=== PATIENT | male | born 2005 | race Two or more races ===

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

== ENCOUNTER 2024-07-28 12:59 | Emergency (ER) | payer MEDICAID ==
[~2024-07-28] VITALS: Ht 175.3 cm; Wt 96.8 kg
[~2024-07-28 12:59] MED LIST: OMEP-434 PO
--- NOTE | 2024-07-28 13:36 | ED.PDOC ---
Musculoskeletal HPI Comments A 18 YEAR OLD MALE PRESENTS TO THE ED WITH COMPLAINT OF LEFT ANKLE PAIN. PATIENT STATES HE WAS PLAYING BASKETBALL YESTERDAY AND HE ACCIDENTALLY TWISTED HIS LEFT ANKLE. PATIENT REPORTS HE IS NOW EXPERIENCING LEFT ANKLE PAIN WITH MILD SWELLING. PATIENT DENIES FEVER, CHILLS, SHORTNESS OF BREATH, CHEST PAIN, ABDOMINAL PAIN, NAUSEA, VOMITING, HEADACHE, OR OTHER COMPLAINTS. NO OTHER SYMPTOMS OR MODIFYING FACTORS AT THIS TIME. PATIENT IS ALERT, ORIENTED X 4, AND HAS STEADY GAIT. Chief Complaint: Lower Extremity Time Seen by MD: 13:01 Primary Care Provider: LEANNE Reviewed Notes: Nurses Notes, Medications, Allergies Allergies: Coded Allergies: No Known Drug Allergy (Verified Allergy, Unknown, 05/22/18) Home Meds Active Scripts Omeprazole Magnesium (Omeprazole) 20 Mg Tab, 20 MG PO DAILY for 20 Days, #20 TAB Prov:MIGUELINA CASTILLO 07/01/22 Information Source: Patient Mode of Arrival: Ambulatory Location: Left Extremity Location: Ankle Timing: Days Prehospital treatment: None Severity: Moderate Able to Move Extremity: Yes Bear Weight: Fully Pain: Moderate Mechanism: Twisting Circumstances: Sporting, Playing Onset of Symptoms: After Trauma Symptoms: Swelling, Pain DVT Risk Factors: NONE Last Tetanus: UTD Associated signs and symptoms: Ankle pain Past Medical History PAST MEDICAL HISTORY: Denies Surgical History: Denies all surgeries Family History Family History: Reviewed,noncontributory to illness Social History Smoker: Non-Smoker Alcohol: Occasionally Drugs: Cocaine, Marijuana Lives In: Home Constitutional: denies: chills, diaphoresis, fatigue, fever, malaise, sweats, weakness, others EENTM: denies: blurred vision, double vision, ear bleeding, ear discharge, ear drainage, ear pain, ear ringing, eye pain, eye redness, hearing loss, mouth pain, mouth swelling, nasal discharge, nose bleeding, nose congestion, nose pain, photophobia, tearing, throat pain, throat swelling, voice changes, others Respiratory: denies: cough, hemoptysis, orthopnea, SOB at rest, shortness of breath, SOB with excertion, stridor, wheezing, others Cardiovascular: denies: chest pain, dizzy spells, diaphoresis, Dyspnea on exertion, edema, irregular heart beat, left arm pain, lightheadedness, palpitations, PND, syncope, others Gastrointestinal: denies: abdomen distended, abdominal pain, blood streaked bowels, constipated, diarrhea, dysphagia, difficulty swallowing, hematemesis, melena, nausea, poor appetite, poor fluid intake, rectal bleeding, rectal pain, vomiting, others Genitourinary: denies: burning, dysuria, flank pain, frequency, hematuria, incontinence, penile discharge, penile sore, pain, testicle pain, testicle swelling, urgency, others Neurological: denies: dizziness, fainting, headache, left sided numbness, left sided weakness, numbness, paresthesia, pre-existing deficit, right sided num bness, right sided weakness, seizure, speech problems, tingling, tremors, weakness, others Musculoskeletal: reports: joint pain, joint swelling, others (LEFT ANKLE PAIN WITH MILD SWELLING); denies: back pain, gout, muscle pain, muscle stiffness, neck pain Integumetry: denies: bruises, change in color, change in hair/nails, dryness, laceration, lesions, lumps, rash, wounds, others Allergic/Immunocompromised: denies: Difficulty Healing, Frequent Infections, Hives, Itching, others Hematologic/Lymphatic: denies: anemia, blood clots, easy bleeding, easy bruising, swollen glands, others Endocrine: denies: excessive hunger, excessive sweating, excessive thirst, excessive urination, flushing, intolerance to cold, intolerance to heat, unexplained weight gain, unexplained weight loss, others Psychiatric: denies: anxiety, bipolar disorder, depression, hopeless, panic disorder, schizophrenia, sleepless, suicidal, others All Other Systems: Reviewed and Negative Physical Exam General Appearance: No Apparent Distress, Normal HEENT: Normal ENT Inspection, PERRL/EOMI, Pharynx Normal, TMs Normal Neck: Full Range of Motion, Non-Tender, Normal, Normal Inspection Respiratory: Chest Non-Tender, Lungs Clear, No Accessory Muscle Use, No Respiratory Distress, Normal Breath Sounds Cardiovascular: No Edema, No JVD, No Murmur, No Gallop, Normal Peripheral Pulses, Regular Rate/Rhythm Breast Exam: Deferred Gastrointestinal: No Organomegaly, Non Tender, No Pulsatile Mass, Normal Bowel Sounds, Soft Genitalia: Deferred Pelvic: Deferred Rectal: Deferred Extremities: No calf tenderness, Normal capillary refill, Normal range of motion, No pedal edema, Tender (AND MILD SWELLING ON LEFT ANKLE, NO BONY TENDERNESS AND DEFORMITY. 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 Was a procedure done?: No Differential Diagnosis EXT Differential Diagnosis: Fracture, Sprain, Dislocation, Contusion, Strain X-Ray, Labs, Meds, VS Vital Signs Date Time Temp Pulse Resp B/P (MAP) Pulse Ox O2 Delivery O2 Flow Rate FiO2 07/28/24 13:59 81 16 99 Room Air 07/28/24 13:59 81 16 118/68 (85) 99 07/28/24 13:06 98.7 81 16 118/68 (85) 99 PATIENT: ISABELLA MASON: [id number]: [id number] : 2005 LOC: ER ROOM / BED: / AGE / SEX: 18 / M ADM STATUS: REG ER SERVICE 1307 ORDERING PHYSICIAN: MODESTA VAZQUEZ PROCEDURE(s): LANKL - L ANKLE 3 VIEW REASON: INJURY ORDER NUMBER(s): [id number], ACCESSION NUMBER(s): [id number] CLINICAL INFORMATION: 18 years old, Male; INJURY . TECHNIQUE: 3 views of the left ankle were obtained. COMPARISON: None FINDINGS: No acute fracture or dislocation. Talar dome is smooth. No widening at the ankle mortise. No significant arthropathy. Hvgo-zs-diansfid soft tissue swelling along the lateral aspect of the ankle. IMPRESSION: 1. No evidence of acute fracture. 2. Soft tissue swelling along the lateral aspect of the ankle. ATED BY: ALIRIO HAYES DO DICTATED DATE/TIME: 07/28/241347 SIGNED BY: ALIRIO HAYES DO SIGNED DATE/TIME: 07/28/241347 CC: X-Ray, Labs, Meds, VS Comment EXTERNAL NOTES: NONE LABS ORDERED: NONE REVIEWED AND INTERPRETED RESULTS: NONE IMAGING ORDERED: XR ANKLE LT: INDEPENDENT HISTORIANS: NONE TREATMENT: PATIENT'S CASE AND RESULTS HAVE BEEN DISCUSSED WITH THE ED ATTENDING PHYSICIAN AND THEY AGREE WITH MY PLAN OF CARE. I HAVE DISCUSSED IMAGING RESULTS WITH PATIENT AND HAVE INSTRUCTED HIM TO FOLLOW UP WITH THEIR PCP IN 1-2 DAYS. THE PATIENT FULLY UNDERSTANDS THEIR RESULTS AND ARE AWARE THEY NEED TO FOLLOW UP WITH THEIR PCP FOR FURTHER EVALUATION IF THEIR SYMPTOMS PERSIST. Images Reviewed?: Images reviewed and evaluated by me Time of 1ST Reevaluation: 14:15 Reevaluation 1ST: Improved Patient Education/Counseling: Diagnosis, Treatment, Need For Follow Up Family Education/Counseling: Diagnosis, Treatment, Need For Follow Up Medical Screening: No EMC Exist At This Time Departure 1 Departure Time of Disposition: 14:15 Impression: Primary Impression: Sprain of left ankle Qualified Codes: S93.402A - Sprain of unspecified ligament of left ankle, initial encounter Disposition: HOME / SELF CARE / HOMELESS Condition: Stable Additional Instructions: FOLLOW-UP WITH PCP IN 1 TO 2 DAYS. TAKE MEDICATIONS PRESCRIBED. RETURN TO ED FOR ANY NEW OR WORSENING SYMPTOMS. 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 Electronically submitted by Sagar Talley ([email or web address]). MODESTA VAZQUEZ Jul 28, 2024 13:36
--- NOTE | 2024-07-28 13:50 | DVH ---
CLINICAL INFORMATION: 18 years old, Male; INJURY . TECHNIQUE: 3 views of the left ankle were obtained. COMPARISON: None FINDINGS: No acute fracture or dislocation. Talar dome is smooth. No widening at the ankle mortise. No significant arthropathy. Nwla-uc-bqqekxgz soft tissue swelling along the lateral aspect of the ank le. IMPRESSION: 1. No evidence of acute fracture. 2. Soft tissue swelling along the lateral aspect of the ankle.
[2024-07-28 13:59] VITALS: BP 118/68; PULSE 81; RESP 16; O2SAT 99
[2024-07-28] MEDS ORDERED: IBUP-1456 PO (14:16)
== END 2024-07-28 14:45 | disposition home or self-care (01) ==
LOC: ER 12:59
DX: S93.402A Sprain of unspecified ligament of left ankle, initial encounter (principal); Z79.899 Other long term (current) drug therapy; X50.1XXA Overexertion from prolonged static or awkward postures, initial encounter; Y93.67 Activity, basketball; Y92.89 Other specified places as the place of occurrence of the external cause; Y99.8 Other external cause status
CPT/HCPCS: 73610

== ENCOUNTER 2025-05-17 21:09 | Emergency (ER) | payer MEDICAID ==
[~2025-05-17] VITALS: Ht 172.7 cm; Wt 102.0 kg
[~2025-05-17 21:09] MED LIST changes: +IBUP-1456 PO
--- NOTE | 2025-05-18 01:15 | DVH ---
INDICATION: Bilateral lower abdominal quadrants TECHNIQUE: Multiple real-time sonographic images were obtained of the lower quadrant. COMPARISON: None FINDINGS: [facility] sonographic images of the lower quadrants. No evidence of ascites, fluid collection, o r lymphadenopathy. IMPRESSION: 1. Unremarkable ultrasound of the lower quadrants.
[2025-05-18 01:41] LABS: Urine Protein, UAD Negative (Negative)
[2025-05-18] MEDS ORDERED: CIPR-173 PO (01:49)
[2025-05-18] MEDS ORDERED: IBUP-1455 PO (01:49)
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
[2025-05-18 02:17] VITALS: BP 135/94; PULSE 65; RESP 14; TEMP 98.5; O2SAT 97
[2025-05-18] MEDS: CIPROFLOXACIN HCL 500 MG TAB PO ONE (02:30)
== END 2025-05-18 02:45 | disposition home or self-care (01) ==
LOC: ER 21:09
DX: S30.1XXA Contusion of abdominal wall, initial encounter (principal); N39.0 Urinary tract infection, site not specified; I10 Essential (primary) hypertension; Z79.899 Other long term (current) drug therapy; V43.52XA Car driver injured in collision with other type car in traffic accident, initial encounter; Y93.I9 Activity, other involving external motion; Y92.488 Other paved roadways as the place of occurrence of the external cause; Y99.8 Other external cause status
CPT/HCPCS: 76705; 81001

== ENCOUNTER 2025-06-13 20:18 | Emergency (ER) | payer MEDICAID ==
[~2025-06-13] VITALS: Ht 172.7 cm; Wt 102.1 kg
[~2025-06-13 20:18] MED LIST changes: +CIPR-173 PO; +IBUP-1455 PO
[2025-06-13 20:51] VITALS: BP 144/92; PULSE 82; RESP 16; TEMP 97.1; O2SAT 97
[2025-06-13] MEDS ORDERED: IBUP-1456 PO (20:57)
[2025-06-13] MEDS ORDERED: CYCL-837 PO (20:57)
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
--- NOTE | 2025-06-13 21:20 | DVH ---
INDICATION: lumbar back pain TECHNIQUE: 4 views of the lumbar spine were obtained. COMPARISON: None FINDINGS: There are no acute fractures or subluxations. Alignment is maintained. Disc spaces are maintained. IMPRESSION: No acute fracture or subluxation.
== END 2025-06-13 21:33 | disposition home or self-care (01) ==
LOC: ER 20:18
DX: S39.012A Strain of muscle, fascia and tendon of lower back, initial encounter (principal); X58.XXXA Exposure to other specified factors, initial encounter; Y93.89 Activity, other specified; Y92.89 Other specified places as the place of occurrence of the external cause; Y99.8 Other external cause status
CPT/HCPCS: 72100